=== PATIENT | male | born 1995 | race Caucasian/White ===

== ENCOUNTER → 2021-11-27 10:01 | Outpatient (CLI) | payer BC, SELFPAY ==
--- NOTE | 2021-11-27 10:02 | MR_ITS ---
FINAL REPORT CLINICAL HISTORY: new daily persistent headache, fhx aneurysm. 14ML PROHANCE GIVEN. FINDINGS: Multiplanar MR imaging of the brain was performed without and with contrast. There is no evidence of intracranial hemorrhage or mass. No abnormal extra-axial fluid collection is seen. The ventricular size is within normal limits. There is no evidence of shift of the midline structures. The posterior fossa and brainstem have an unremarkable appearance. No area of abnormal restricted diffusion is identified. No abnormal contrast enhancement is seen. Normal major vessel vascular flow voids are noted. IMPRESSION: No acute intracranial abnormality identified. Reviewed, Interpreted and Dictated by Jean-Pierre Padilla III, MD Transcribed by Abi Moreno Authenticated and [facility]
--- NOTE | 2021-11-27 10:10 | MR_ITS ---
FINAL REPORT CLINICAL HISTORY: MIGRAINE HEADACHES. FAMILY HX ANEURYSM. FINDINGS: Multiple projection images of the brain arterial vasculature were obtained without contrast. The raw data images were also reviewed. The distal internal carotid, distal vertebral and basilar arteries have an unremarkable appearance without evidence of significant stenosis or occlusion. The proximal anterior, middle and posterior cerebral arteries have an unremarkable appearance. There is no evidence of significant stenosis or major branch occlusion. No aneurysm or vascular malformation is identified. 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 IMPRESSION: Unremarkable MR angiogram of the head. Reviewed, Interpreted and Dictated by Jean-Pierre Padilla III, MD Transcribed by Abi Moreno Authenticated and [facility]
== END ==
PROVIDERS: PCP Nurse Practitioner; Visit Provider Nurse Practitioner
DX: G44.52 New daily persistent headache (NDPH) (principal); Z82.49 Family history of ischemic heart disease and other diseases of the circulatory system
CPT/HCPCS: 70544; 70553; A9576

== ENCOUNTER → 2022-04-02 11:36 | Outpatient (CLI) | payer BC, SELFPAY ==
[2022-04-02 19:05] LABS: Adenovirus,PCR Not Detected (NotDetected); Bordetella Pertussis Not Detected (NotDetected); Chlamydophila Pneumoniae, PCR Not Detected (NotDetected); Coronavirus 19, PCR Not Detected (NotDetected); Coronavirus 229E Not Detected (NotDetected); Coronavirus NL63 Not Detected (NotDetected); Coronavirus OC43 Not Detected (NotDetected); Coronovirus HKU1,PCR Not Detected (NotDetected); Human Metapneumovirus Not Detected (NotDetected); Influenza A, PCR Not Detected (NotDetected); Influenza AH1, 2009 Not Detected (NotDetected); Influenza AH1, PCR Not Detected (NotDetected); Influenza AH3,PCR Not Detected (NotDetected); Influenza B, PCR Not Detected (NotDetected); Mycoplasma Pneumoniae, PCR Not Detected (NotDetected); Parainfluenza 1, PCR Not Detected (NotDetected); Parainfluenza 2, PCR Not Detected (NotDetected); Parainfluenza 3, PCR Not Detected (NotDetected); Parainfluenza 4, PCR Not Detected (NotDetected); Respiratory Syncytial Virus Not Detected (NotDetected); Rhinovirus/Enterovirus Not Detected (NotDetected)
== END ==
PROVIDERS: PCP Nurse Practitioner; Visit Provider Nurse Practitioner
DX: J06.9 Acute upper respiratory infection, unspecified (principal)
CPT/HCPCS: 87581; 87632; 87798; C9803; U0003; U0005

== ENCOUNTER 2023-10-08 14:06 | Outpatient (CLI) | payer BC, SELFPAY ==
--- NOTE | 2023-10-08 14:13 | US_ITS ---
FINAL REPORT CLINICAL HISTORY: .lt test pain x 1 day FINDINGS: SCROTAL ULTRASOUND There is no evidence of torsion. There is a small left-sided varicocele. Normal flow is demonstrated by Doppler exam. No significant fluid collections are present. Epididymal structures are unremarkable. IMPRESSION: Small left-sided varicocele. Reviewed, Interpreted and Dictated by Asaf Milian MD Transcribed by Lacy La Authenticated and [facility]
== END 2023-10-08 23:59 | disposition home or self-care (01) ==
LOC: RAD 14:10
PROVIDERS: PCP Nurse Practitioner; Visit Provider Nurse Practitioner
DX: N50.812 Left testicular pain (principal)
CPT/HCPCS: 76870

== ENCOUNTER 2024-01-31 18:55 | Outpatient (CLI) | payer BC, SELFPAY | END 2024-01-31 23:59 | disposition home or self-care (01) | LOC: LAB.DROPOF 18:56 | PROVIDERS: PCP Nurse Practitioner Family; Visit Provider Nurse Practitioner Family | DX: N50.812 Left testicular pain (principal) | CPT/HCPCS: 87086 ==

== ENCOUNTER 2024-12-31 12:00 | Outpatient (CLI) | payer BC, SELFPAY ==
[2024-12-31 19:07] LABS: Coronavirus 19, PCR Not Detected (NotDetected); Influenza A, PCR Not Detected (NotDetected); Influenza B, PCR Not Detected (NotDetected)
--- OUTSIDE RECORDS SUMMARY | 2025-01-01 09:15 | XMS_ITS | Clinical Summary ---
Author Organization [facility] Address [address] [place] [address] Phone Care Team Providers Care Denial Management Representative Name Role Phone Unavailable Primary Care Provider Unavailabl e Allergies No known active allergies Medications No known medications Immunizations Immunization Administration Dates Next Due Tdap 08/07/2018 Social History Tobacco Use Types Packs/Day Years Used Date Smoking Tobacco: Never Smokeless Tobacco: Never Alcohol Use Standard Drinks/Week Comments No 0 (1 standard drink = 0.6 oz pur e alcohol) Sex and Gender Information Value Date Recorded Sex Assigned at Not on file Legal Sex Male 8:26 AM EDT Gender Identity Not on file Sexual Orientation Not on file Obstetrics History Last Filed Vital Signs Vital Sign Reading Time Taken Comments Blood Pressure 112/62 08/07/2018 9:54 AM EDT Pulse 69 08/07/2018 9:54 AM EDT Temperature 37 C (98.6 F) 08/07/2018 8:29 AM EDT Respiratory Rate 16 08/07/2018 9:54 AM EDT Oxygen Saturation 98% 08/07/2018 9:54 AM EDT Inhaled Oxygen Concentration - - Weight - - Height 185.4 cm (6' 1 ) 08/07/2018 8:29 AM EDT Body Mass Index - - Plan of Treatment Health Maintenance Due Date Last Done Comments Annual Wellness Exam 1998 Hepatitis B Vaccine (1 of 3 - 19+ 3-dose series) 2014 COVID-19 Vaccine ( - 2023-2 5 season) 2024 Influenza Vaccine (#1) 2024 DTaP/TDaP/Td (2 - Td or Tdap) 08/07/2028 08/07/2018 Meningococcal B Vaccine Aged Out No l onger eligible based on patient's age to complete this topic Pneumococcal Vaccine 0-49 Aged Out No longer eligible based on patient's age to complete this topic Insurance [employer] [address] [place] [phone]
== END 2024-12-31 23:59 ==
LOC: LAB.DROPOF 01-01 09:14
PROVIDERS: PCP Nurse Practitioner; Visit Provider Nurse Practitioner
DX: R50.9 Fever, unspecified (principal); R05.9 Cough, unspecified
CPT/HCPCS: 87636

== ENCOUNTER 2025-03-15 14:52 | Outpatient (CLI) | payer BC, SELFPAY ==
--- NOTE | 2025-03-15 14:55 | XR_ITS ---
FINAL REPORT TECHNIQUE: Left foot 3 views CLINICAL HISTORY: left distal foot and 4th/5th pain, trauma COMPARISON: None FINDINGS: AP, oblique and lateral views of the left foot were obtained. There is no acute fracture or dislocation. The joint spaces are preserved. Soft tissues are unremarkable. IMPRESSION: No acute osseous abnormality of the left foot. Reviewed, Interpreted and Dictated by Yara Cho MD Transcribed by Heather Bui Authenticated and [facility]
--- OUTSIDE RECORDS SUMMARY | 2025-03-15 15:02 | XMS_ITS | Clinical Summary ---
Author Organization [facility] Address [address] [place] [address] Phone Care Team Providers Care Digital Ad Trafficker Name Role Phone Unavailable Primary Care Provider [...] on file Sexual Orientation Not on file Last Filed Vital Signs Vital Sign Reading [...] 3-dose series) 2014 COVID-19 Vaccine ( - 2024-2 6 season) 2024 Influenza Vaccine (#1) 2024 DTaP/TDaP/Td (2 - Td or Tdap) 08/07/2028 08/07/2018 Meningococcal B Vaccine Aged Out No l onger eligible based on patient's age to complete this topic Pneumococcal Vaccine 0-49 Aged Out No longer eligible based on patient's age to complete this topic Insurance [employer] [address] [place] [phone]
== END 2025-03-15 23:59 | disposition home or self-care (01) ==
LOC: RAD 14:53
PROVIDERS: PCP Nurse Practitioner; Visit Provider Nurse Practitioner
DX: M79.672 Pain in left foot (principal)
CPT/HCPCS: 73620